=== PATIENT | female | born 1995 ===

== ENCOUNTER 2018-11-21 12:46 | Emergency (ER) | payer MEDICAID ==
--- NOTE | 2018-11-21 13:41 | ED PDOC ---
HPI: CCC, URI, Sore Throat Time Seen by Provider: 11/21/18 13:03 Chief Complaint (Nursing): ENT Problem Chief Complaint (Provider): Sore throat History Per: Patient History/Exam Limitations: no limitations Have you had recent travel within the past 21 days to any of the following countries: [place], [place], [place] or [place]?: No Onset/Duration Of Symptoms: Days Location Of Pain: Throat Associated Symptoms: Sore Throat, Other (fatigue) Additional History Per: Patient Additional Complaint(s): 23yo female, comes to ER reporting 1 week history of sore throat, "throat swelling" and fatigue. Patient states she has been tolerating PO well and denies any fever or chills. She reports presenting to the ER due to concerns for a possible mono infection. Patient denies any known sick contacts and offers no additional complaints. Past Medical History Reviewed: Historical Data, Nursing Documentation, Vital Signs Vital Signs: Last Vital Signs Temp 98.3 F 11/21/18 12:54 Pulse 116 H 11/21/18 12:54 Resp 20 11/21/18 12:54 BP 135/81 11/21/18 12:54 Pulse Ox 98 11/21/18 12:54 - Medical History PMH: No Chronic Diseases - Surgical History Surgical History: No Surg Hx - Family History Family History: States: No Known Family Hx - Allergies Allergies/Adverse Reactions: Allergies Allergy/AdvReac Type Severity Reaction Status Date / Time peanut Allergy RASH Verified 11/21/18 12:54 shellfish derived Allergy RASH Verified 11/21/18 12:54 Review of Systems ROS Statement: Except As Marked, All Systems Reviewed And Found Negative Constitutional: Positive for: Other (fatigue). Negative for: Fever, Chills ENT: Positive for: Throat Pain, Throat Swelling Physical Exam - Reviewed Nursing Documentation Reviewed: Yes Vital Signs Reviewed: Yes - Physical Exam Appears: Positive for: Non-toxic, No Acute Distress Head Exam: Positive for: ATRAUMATIC, NORMAL INSPECTION, NORMOCEPHALIC Skin: Positive for: Normal Color Eye Exam: Positive for: Normal appearance ENT: Positive for: Pharyngeal Erythema, Other (mild tonsilar enlargement bilaterally). Negative for: Tonsillar Exudate, Tonsillar Swelling Neck: Positive for: Normal, Painless ROM, Supple Cardiovascular/Chest: Positive for: Regular Rate, Rhythm Respiratory: Positive for: Normal Breath Sounds Neurologic/Psych: Positive for: Alert, Oriented - ECG O2 Sat by Pulse Oximetry: 98 (rA) Pulse Ox Interpretation: Normal Medical Decision Making Medical Decision Making: Assessment: 23yo with sore throat, fatigue Plan: -- Rapid mono assay -- Rapid strep 1623 Rapid strep and mono assay both negative. Patient informed of findings and is stable for discharge home. Pt. well appearing, nontoxic, tolerating po. repeat hr 90. Scribe Attestation: Documented by Diann Aviles acting as a scribe for MANDO Guzmán. Provider Attestation: All medical record entries made by the Scribe were at my direction and personally dictated by me. I have reviewed the chart and agree that the record accurately reflects my personal performance of the history, physical exam, medical decision making, and the department course for this patient. I have also personally directed, reviewed, and agree with the discharge instructions and disposition. Disposition - Clinical Impression Clinical Impression: Pharyngitis - Disposition Referrals: [facility] [Outside] Disposition: Routine/Home Disposition Time: 16:23 Condition: STABLE Instructions: Viral Pharyngitis Forms: [employer] (Czech)
[2018-11-21 16:48] VITALS: BP 129/73; PULSE 94; RESP 18; TEMP 98.5; O2SAT 100
== END 2018-11-21 16:47 | disposition home or self-care (01) ==
LOC: H.ER 12:46
DX: J02.9 Acute pharyngitis, unspecified (principal)